=== PATIENT | male | born 2000 | race Caucasian/White ===

== ENCOUNTER 2023-11-05 09:50 | Outpatient (CLI) | payer OTHER, SELFPAY ==
--- NOTE | 2023-11-05 10:00 | CRLHL7_ITS ---
For Patients: As a result of the Century Cures Act, medical imaging exams and procedure reports are released immediately into your electronic medical record. You may view this report before your referring provider. If you have questions, please contact your health care provider. EXAM: CT OF THE RIGHT ANKLE, WITHOUT CONTRAST CLINICAL INDICATION: History of injury 6 months prior. COMPARISON STUDIES: 11/01/2023 radiographs. TECHNICAL: Non-contrast CT of the ankle with axial images. Sagittal oblique and coronal oblique reformatted images were created. FINDINGS: OSSEOUS STRUCTURES: Tibia: Chronic ossification in the distal interosseous membrane and chronic periosteal reaction along the posterior malleolus consistent with sequela from prior injury. No fracture deformity is evident. No acute fracture lucency. Fibula: No fracture. Talus: No fracture. Calcaneous: No fracture where visualized. Midfoot: No fracture of the navicular. JOINT SPACES: Ankle: Mild hypertrophic change in the ankle joint without joint space narrowing, subchondral cystic change or subchondral sclerosis. No ankle joint effusion or calcific loose body. Subtalar and talonavicular: Joint spaces are maintained. SOFT TISSUES: Mild lateral and medial malleolar subcutaneous edema. No subcutaneous hematoma. MUSCLES: No intramuscular mass or hematoma. No muscle atrophy. TENDONS: The Achilles tendon is intact. No subluxation of the peroneal tendons. No retracted tendon tear. IMPRESSION: 1. 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 2. Mild hypertrophic changes in the ankle joint. 3. Mild subcutaneous edema in the medial and lateral malleolar region. Please note that all CT scans at this facility use dose modulation, iterative reconstruction, and/or weight-based dosing when appropriate to reduce radiation dose to as low as reasonably achievable. Dictated by Shabbir Clemens MD @ 11/05/2023 11:58:00 AM (Electronically Signed)
== END 2023-11-05 09:51 | disposition home or self-care (01) ==
PROVIDERS: Visit Provider Orthopaedic Surgery
DX: S82.891A Other fracture of right lower leg, initial encounter for closed fracture (principal)
CPT/HCPCS: 73700